=== PATIENT | female | born 2005 | race Two or more races ===

== ENCOUNTER 2025-01-22 19:41 | Emergency (ER) | payer OTHER ==
[~2025-01-22] VITALS: Ht 165.1 cm; Wt 44.9 kg
[2025-01-22] MEDS ORDERED: CETIRIZINE HCL 5 MG/5 ML ML PO ONE (20:45)
[2025-01-22] MEDS ORDERED: CETIRIZINE HCL 5MG/5ML BLIST.PACK PO ONE (20:52)
[2025-01-22 21:06] LABS: BASO % 0.7 % (0.1-1.2); EOS # 0.32 (0.04-0.54); EOS % 4.5 % (0.7-7.0); HEMATOCRIT 36.8 % (34.1-44.9); HEMOGLOBIN 11.5 g/dL (11.2-15.7); LYMPH # 1.85 (1.18-3.74); LYMPH % 25.9 % (19.3-53.1); MEAN CORPUSCULAR HEMOGLOBIN 23.2 pg (25.6-32.2); MONO # 0.95 (0.24-0.82); NEUT # 3.94 (1.56-6.13); NEUT % 55.3 % (34.0-71.1); PLATELET COUNT 337 K/uL (163-369); RED BLOOD COUNT 4.96 M/uL (3.93-5.22); RED CELL DISTRIBUTION WIDTH 19.3 % (11.6-14.4)
[2025-01-22 21:19] LABS: MONO % 13.3 % (4.7-12.5)
[2025-01-22 21:20] LABS: COVID-19 AG NEGATIVE (NEGATIVE)
[2025-01-22 22:17] LABS: INFLUENZA A AG NEGATIVE (NEGATIVE); INFLUENZA B AG NEGATIVE (NEGATIVE)
[2025-01-22] MEDS ORDERED: ZYRTEC10 MG PO (22:37)
[2025-01-22] MEDS ORDERED: PEPCID AC20 MG PO (22:37)
[2025-01-22] MEDS ORDERED: BENZONATATE200 M1 PO (22:37)
== END 2025-01-22 23:57 | disposition home or self-care (01) ==
LOC: ER 19:41
PROVIDERS: General Practice
DX: J00 Acute nasopharyngitis [common cold] (principal); Z88.6 Allergy status to analgesic agent; Z88.8 Allergy status to other drugs, medicaments and biological substances; J45.909 Unspecified asthma, uncomplicated; G43.809 Other migraine, not intractable, without status migrainosus; F32.89 Other specified depressive episodes; Z20.822 Contact with and (suspected) exposure to COVID-19

== ENCOUNTER 2025-01-29 18:35 | Emergency (ER) | payer OTHER ==
[~2025-01-29] VITALS: Ht 165.1 cm; Wt 44.9 kg
[~2025-01-29 18:35] MED LIST: BENZONATATE200 M1 PO; PEPCID AC20 MG PO; ZYRTEC10 MG PO
[2025-01-29] MEDS ORDERED: ACETAMINOPHEN 500 MG GEL..CAP PO ONE ×2 (20:28→20:30)
[2025-01-29] MEDS ORDERED: 0.9 % SODIUM CHLORIDE 1,000 ML IV SCH (20:30)
[2025-01-29 21:11] LABS: BASO % 0.6 % (0.1-1.2); EOS # 0.34 (0.04-0.54); EOS % 4.8 % (0.7-7.0); HEMATOCRIT 35.2 % (34.1-44.9); HEMOGLOBIN 11.1 g/dL (11.2-15.7); LYMPH # 3.18 (1.18-3.74); LYMPH % 45.1 % (19.3-53.1); MEAN CORPUSCULAR HEMOGLOBIN 23.5 pg (25.6-32.2); MONO # 0.63 (0.24-0.82); MONO % 8.9 % (4.7-12.5); NEUT # 2.84 (1.56-6.13); NEUT % 40.3 % (34.0-71.1); PLATELET COUNT 337 K/uL (163-369); RED BLOOD COUNT 4.73 M/uL (3.93-5.22); RED CELL DISTRIBUTION WIDTH 18.3 % (11.6-14.4)
[2025-01-29 21:21] LABS: ALBUMIN 3.3 gm/dL (3.4-5.0); BILIRUBIN TOTAL 0.36 mg/dL (0.3-1.2); CALCIUM 8.8 mg/dL (8.5-10.1); CREATININE SERUM 0.63 mg/dL (0.55-1.02); GFR 121.73; GLOBULINA 4.1 G/DL (2.4-3.5); POTASSIUM 3.68 mEq/L (3.5-5.1); TOTAL PROTEIN 7.4 gm/dL (6.4-8.2)
== END 2025-01-29 22:03 | disposition left against medical advice (07) ==
LOC: ER 18:35
PROVIDERS: General Practice
DX: R10.31 Right lower quadrant pain (principal); R10.2 Pelvic and perineal pain; Z88.5 Allergy status to narcotic agent; Z88.6 Allergy status to analgesic agent